=== PATIENT | male | born 1975 | race American Indian/Alaskan Native ===

== ENCOUNTER 2020-03-15 18:14 | Inpatient (IN) | payer OTHER ==
--- NOTE | 2020-03-15 19:03 | Emergency Department Report ---
HPI - General Chief Complaint: Extremity Injury, Lower Time Seen by Provider: 03/15/20 18:50 - HPI HPI: Room 44 The patient is a 45-year-old male present with a chief complaint of right foot pain and swelling. The patient states for the past 2 weeks he has had pain and swelling of the right foot. Patient states she began to notice bruising developing prompting him to go to an urgent care facility. At the urgent care facility the patient was told that he did not have a pulse in his right foot and was sent to the emergency department. The patient states the only injury he can recall was February 16, 2020 a door was closed on his foot pushing it inside the car but was not caught in the door. Patient denies history of fever ED Past Medical Hx - Past Medical History Previous Medical History?: No - Surgical History Past Surgical History?: No - Family History Family history: no significant - Social History Smoking Status: Former Smoker (None x6 months) Substance Use Type: Alcohol (Occasional), Marijuana ED Review of Systems ROS: Stated complaint: NO PULSE IN RT FOOT; MD REFERRED Other details as noted in HPI Constitutional: denies: fever Eyes: denies: eye pain ENT: denies: throat pain Respiratory: no symptoms reported Cardiovascular: denies: chest pain Endocrine: no symptoms reported Gastrointestinal: denies: abdominal pain Genitourinary: denies: dysuria Musculoskeletal: denies: back pain Physical Exam - Physical Exam Vital Signs: Vital Signs 03/15/20 18:44 Temperature 99.1 F Pulse Rate 83 Respiratory 18 Rate Blood Pressure 133/97 [Right] O2 Sat by Pulse 98 Oximetry Physical Exam: GENERAL: The patient is well-developed well-nourished male lying on stretcher not appearing to be in acute distress. [] HEENT: Normocephalic. Atraumatic. Extraocular motions are intact. Patient has moist mucous membranes. NECK: Supple. Trachea midline CHEST/LUNGS: There is no respiratory distress noted. HEART/CARDIOVASCULAR: Regular. There is no tachycardia. 2+ left DP, unable to palpate DP 1 right foot ABDOMEN: There is no abdominal distention. SKIN: There is ecchymosis to the lower aspect of the right lower extremity NEURO: The patient is awake, alert, and oriented. The patient is cooperative. The patient has no focal neurologic deficits. The patient has normal speech and gait. MUSCULOSKELETAL: There is no evidence of acute injury. ED Course Vital Signs 03/15/20 18:44 Temperature 99.1 F Pulse Rate 83 Respiratory 18 Rate Blood Pressure 133/97 [Right] O2 Sat by Pulse 98 Oximetry - Consultations Consultation #1: 03/15/20 18:59 Vascular surgery paged 03/15/20 19:[address] Dodson- agrees with heparin drip no bolus. Will order CTA abdomen pelvis with runoff for further evaluation ED Medical Decision Making - Lab Data Result diagrams: 03/15/20 19:10 03/15/20 19:10 - Differential Diagnosis Arterial occlusion Critical care attestation.: If time is entered above; I have spent that time in minutes in the direct care of this critically ill patient, excluding procedure time. ED Disposition Clinical Impression: Arterial occlusion, lower extremity Disposition: 09 OP ADMIT IP TO THIS HOSP Is pt being admited?: Yes Does the pt Need Aspirin: No Condition: Fair Referrals: PRIMARY CARE,MD [Primary Care Provider] - 3-5 Days Time of Disposition: 22:06 (Hospitalist paged (Dr Interiano))
[2020-03-15 19:38] LABS: Hematocrit 39.7 % (35.5-45.6); Hemoglobin 13.6 gm/dl (11.8-15.2); Mean Corpuscular HGB Conc 34 % (32-34); Mean Corpuscular Volume 87 fl (84-94); Red Blood Count 4.56 M/mm3 (3.65-5.03)
[2020-03-15 19:39] LABS: Basophils % (Auto) 0.4 % (0.0-1.8); Eosinophils % (Auto) 0.3 % (0.0-4.3); Lymphocytes # (Auto) 2.8 K/mm3 (1.2-5.4); Lymphocytes % (Auto) 38.5 % (13.4-35.0); Monocytes # (Auto) 0.5 K/mm3 (0.0-0.8); Monocytes % (Auto) 7.3 % (0.0-7.3); Platelet Count 243 K/mm3 (140-440); Red Cell Distribution Width 13.7 % (13.2-15.2)
[2020-03-15 19:52] LABS: INR 1.08 (0.87-1.13)
[2020-03-15 19:53] LABS: Partial Thromboplastin Time 27.2 Sec. (24.2-36.6)
[2020-03-15 19:58] LABS: BUN/Creatinine Ratio 7; Blood Urea Nitrogen 6 mg/dL (9-20); Calcium 9.3 mg/dL (8.4-10.2); Hemolysis Index 4
[2020-03-15] MEDS ORDERED: ONDANSETRON 4 MG/2 ML INJ IV ONE (21:16)
[2020-03-15] MEDS ORDERED: fentaNYL 100 MCG/2 ML INJ IV ONE (21:16)
[2020-03-15] MEDS ORDERED: MAGNESIUM HYDROXIDE (MOM) ORAL LIQD UDC PO PRN (22:48)
[2020-03-15] MEDS ORDERED: ONDANSETRON 4 MG/2 ML INJ IV PRN (22:48)
[2020-03-15] MEDS ORDERED: ACETAMINOPHEN 325 MG TAB PO PRN (22:48)
--- NOTE | 2020-03-15 22:55 | History and Physical Report ---
History of Present Illness Date of examination: 03/15/20 Date of admission: 03/15/20 22:25 Chief complaint: Right foot pain History of present illness: 45-year-old male with no significant past medical problems presenting to the emergency room today complaining of right foot pain. Pain has been ongoing for about 2 weeks. Patient recalls that the door was closed on his foot while trying to get in the car sometime in January 2020. However his foot was not caught in the door. He has noticed some bruising on the right foot lately and therefore decided to report to an urgent care facility. He was thereafter sent to the emergency room for further evaluation as no pulse could be felt on the right foot. Upon arrival in the emergency room consult was placed to the vascular surgeon Dr. Dodson. Recommendation was to commence patient on heparin drip. Work-up in the emergency room including labs were unremarkable.CTA lower extremity: The only significant abnormality seen is lack of flow in the distal right anterior tibial artery and right dorsalis pedis artery. Patient is being admitted for arterial occlusion. Past History Past Medical History: No medical history Past Surgical History: No surgical history Social history: smoking (Quit tobacco use 6 months ago), alcohol abuse (Drinks alcohol occasionally), other (Uses marijuana occasionally) Family history: no significant family history Medications and Allergies Allergies Allergy/AdvReac Type Severity Reaction Status Date / Time No Known Allergies Allergy Verified 03/15/20 21:32 Home Medications Medication Instructions Recorded Confirmed Last Taken Type No Known Home Medications [No 03/16/20 03/16/20 Unknown History Reported Home Medications] Active Meds: Active Medications Acetaminophen (Acetaminophen 325 Mg Tab) 650 mg PO Q4H PRN PRN Reason: Pain MILD(1-3)/Fever >100.5/MCCOY Heparin Sodium/Sodium Chloride (Heparin/ 0.45% Nacl-25,000 Unit/500 Ml) 25,000 unit in 500 mls @ 30 mls/hr IV TITR FIOR; Protocol Sodium Chloride (Nacl 0.9% 1000 Ml) 1,000 mls @ 75 mls/hr IV DIRECT FIOR Magnesium Hydroxide (Magnesium Hydroxide (Mom) Oral Liqd Udc) 30 ml PO Q4H PRN PRN Reason: Constipation Morphine Sulfate (Morphine 2 Mg/1 Ml Inj) 2 mg IV Q4H PRN PRN Reason: Pain, Moderate (4-6) Ondansetron HCl (Ondansetron 4 Mg/2 Ml Inj) 4 mg IV Q8H PRN PRN Reason: Nausea And Vomiting Sodium Chloride (Sodium Chloride 0.9% 10 Ml Flush Syringe) 10 ml IV BID FIOR Sodium Chloride (Sodium Chloride 0.9% 10 Ml Flush Syringe) 10 ml IV PRN PRN PRN Reason: LINE FLUSH Review of Systems Constitutional: no fever, no chills Ears, nose, mouth and throat: no nasal congestion, no sore throat Cardiovascular: no chest pain, no palpitations Respiratory: no cough, no shortness of breath Gastrointestinal: no abdominal pain, no nausea Genitourinary Male: no dysuria, no hematuria, no flank pain, no nocturia Musculoskeletal: other (Right foot pain), no neck pain, no low back pain Integumentary: no rash, no pruritis Neurological: no headaches, no confusion Exam - Constitutional Vitals: Temp Pulse Resp BP Pulse Ox 99.1 F 83 18 133/97 98 03/15/20 18:44 03/15/20 18:44 03/15/20 18:44 03/15/20 18:44 03/15/20 18:44 General appearance: Present: no acute distress, well-nourished - EENT Eyes: Present: PERRL, EOM intact. Absent: scleral icterus ENT: hearing intact, clear oral mucosa, dentition normal - Neck Neck: Present: supple, normal ROM - Respiratory Respiratory effort: normal Respiratory: bilateral: CTA - Cardiovascular Rhythm: regular Heart Sounds: Present: S1 & S2. Absent: gallop, systolic murmur, diastolic murmur, rub, click - Extremities Extremities: no ischemia, No edema, normal temperature (Right foot feels cooler than the left), normal color, Full ROM Extremity abnormal: pulses diminished (Dorsalis pedis pulse not felt on right foot) Peripheral Pulses: abnormal (Markedly diminished pulse on the right foot) - Abdominal General gastrointestinal: Present: soft, non-tender, non-distended, normal bowel sounds. Absent: mass - Integumentary Integumentary: Present: clear, warm, dry. Absent: rash - Musculoskeletal Musculoskeletal: strength equal bilaterally - Psychiatric Psychiatric: appropriate mood/affect, intact judgment & insight, memory intact, cooperative - Neurologic Neurologic: CNII-XII intact, no focal deficits, moves all extremities Results - Labs CBC & Chem 7: 03/16/20 04:40 03/16/20 04:40 Labs: Abnormal lab results 03/15/20 03/15/20 Range/Units 19:10 19:10 Lymph % (Auto) 38.5 H (13.4-35.0) % BUN 6 L (9-20) mg/dL Assessment and Plan - Patient Problems (1) Arterial occlusion, lower extremity Current Visit: Yes Status: Acute Plan to address problem: Patient has been started on heparin drip. Consult placed to vascular surgery for further evaluation and recommendation. Dr. Dodson has been consulted. (2) Full code status Current Visit: Yes Status: Acute Plan to address problem: Patient is a full code.
[2020-03-15] MEDS: MORPHINE 2 MG/1 ML INJ IV PRN (23:27)
--- NOTE | 2020-03-15 23:36 | Cat Scan Report ---
CTA ABDOMEN, PELVIS, AND BOTH LOWER EXTREMITIES WITH IV CONTRAST INDICATION: Asymetric pedal pulses, lower extremity pain CONTRAST: Total of 150 cc Omnipaque 350 IV COMPARISON: None available. Three-plane MIP reconstructions were produced. All CT scans at this location are performed using CT d ose reduction for ALARA by means of automated exposure control. FINDINGS: Lung bases are clear. No pneumoperitoneum is seen. No free fluid is noted. Gallbladder and bile ducts appear within normal limits. Mild fatty infiltration of the liver is seen without obvious focal lesion. Liver is not significantly enlarged. No masses are noted. No urinary obstructive change s are seen. No evidence of bowel obstruction is noted. No inflammatory changes are seen. Appendix leobardo ears within normal limits. No significant soft tissue abnormalities are seen in the lower extremities . No significant focal bony lesions are seen. Aorta shows no aneurysmal dilatation, evidence of dissection, or stenosis. Only minimal atherosclerot ic changes are seen distally. Major aortic branches are well opacified with no stenoses seen. Good fl ow is seen into and through the iliac arterial system bilaterally without obvious abnormality. Good f low is seen bilaterally through the femoral systems and popliteal arteries into the calves. Trifurcat ion vessels are generally well opacified bilaterally. On the left there is good flow seen in posterio r tibial and anterior tibial arteries below the ankle with good opacification of the foot vessels see n. On the right the posterior tibial artery extends below the ankle. Anterior tibial artery opacifies well to the distal calf but I do not see flow in the right anterior tibial artery below the level of the ankle joint. No flow is seen in the dorsalis pedis artery though there is good flow seen in mult iple other foot arteries on the right. IMPRESSION: The only significant abnormality seen is lack of flow in the distal right anterior tibial artery and right dorsalis pedis artery as described of unknown chronicity Signer Name: Jerardo Morgan MD Signed: 03/15/2020 11:32 PM Workstation Name: [id number]
[2020-03-16] MEDS: HEPARIN/ 0.45% NACL DRIP 25,000 UNIT/500 ML BAG IV SCH ×3 (01:17→20:51)
[2020-03-16] MEDS: SODIUM CHLORIDE 0.9% 1000 ML 1,000 ML IV SCH (01:20)
[2020-03-16] MEDS: MORPHINE 2 MG/1 ML INJ IV PRN ×3 (04:57→19:54)
[2020-03-16 05:36] LABS: Basophils % (Auto) 0.5 % (0.0-1.8); Eosinophils # (Auto) 0.1 K/mm3 (0.0-0.4); Eosinophils % (Auto) 1.4 % (0.0-4.3); Hematocrit 39.4 % (35.5-45.6); Hemoglobin 13.6 gm/dl (11.8-15.2); Lymphocytes # (Auto) 3.2 K/mm3 (1.2-5.4); Lymphocytes % (Auto) 48.1 % (13.4-35.0); Mean Corpuscular HGB Conc 35 % (32-34); Mean Corpuscular Volume 87 fl (84-94); Monocytes # (Auto) 0.5 K/mm3 (0.0-0.8); Monocytes % (Auto) 7.9 % (0.0-7.3); Platelet Count 242 K/mm3 (140-440); Red Cell Distribution Width 13.8 % (13.2-15.2)
[2020-03-16 05:38] LABS: INR 1.13 (0.87-1.13)
[2020-03-16 05:45] LABS: BUN/Creatinine Ratio 7; Blood Urea Nitrogen 6 mg/dL (9-20); Calcium 8.6 mg/dL (8.4-10.2); Hemolysis Index 5
[2020-03-16] MEDS: FAMOTIDINE 20 MG TAB PO SCH ×2 (10:08→23:28)
[2020-03-16] MEDS: DOCUSATE SODIUM 100 MG CAP PO SCH ×2 (10:08→23:28)
--- NOTE | 2020-03-16 14:26 | Consultation ---
History of Present Illness - Reason for Consult Consult date: 03/16/20 Right Leg Pain Requesting physician: DAYA COOPER - History of Present Illness The patient is a 45-year-old male with a history of pain in his right foot associated with occasional numbness of the toes that began approximately 4 weeks ago. He states that on February 15 he was arrested and while being placed in the patrol car his right foot was slammed in the door. Since that time he has had progressively worsening pain of his forefoot that worsens with prolonged standing and ambulation. This is also associated with numbness of all toes. The pain has progressively worsened since the initial incident and he has tried icing the foot to relieve the pain. He began noticing bruising on the pretibial area associated with pain in the lower calf which prompted him to present to an urgent care. Upon presentation to an urgent care he was told he did not have palpable pulses and was told to present to the emergency department here at [facility]. His work-up included a CTA of the abdomen and pelvis with runoff which revealed occlusion of his distal anterior tibial artery however there were no other significant findings. The patient states that since admission he has not experienced much pain however he has not tried to ambulate. He has no additional complaints at this time. He denies any history of hematemesis, hemoptysis, melena, bright red bleeding per rectum, recent surgery, or head trauma. Past History Past Medical History: No medical history Past Surgical History: No surgical history Social history: smoking (Quit tobacco use 6 months ago), alcohol abuse (Drinks alcohol occasionally), other (Uses marijuana occasionally) Family history: no significant family history Medications and Allergies Allergies Allergy/AdvReac Type Severity Reaction Status Date / Time No Known Allergies Allergy Verified 03/15/20 21:32 Home Medications Medication Instructions Recorded Confirmed Last Taken Type No Known Home Medications [No 03/16/20 03/16/20 Unknown History Reported Home Medications] Active Meds: Active Medications Acetaminophen (Acetaminophen 325 Mg Tab) 650 mg PO Q4H PRN PRN Reason: Pain MILD(1-3)/Fever >100.5/[facility]OY Docusate Sodium (Docusate Sodium 100 Mg Cap) 100 mg PO BID [facility] Last Admin: 03/16/20 10:08 Dose: 100 mg Documented by: Famotidine (Famotidine 20 Mg Tab) 20 mg PO BID [facility] Last Admin: 03/16/20 10:08 Dose: 20 mg Documented by: Heparin Sodium/Sodium Chloride (Heparin/ 0.45% Nacl-25,000 Unit/500 Ml) 25,000 unit in 500 mls @ 30 mls/hr IV TITR FIOR; Protocol Last Admin: 03/16/20 01:17 Dose: 1,500 units/hr, 30 mls/hr Documented by: Sodium Chloride (Nacl 0.9% 1000 Ml) 1,000 mls @ 75 mls/hr IV DIRECT FIOR Last Admin: 03/16/20 01:20 Dose: 75 mls/hr Documented by: Magnesium Hydroxide (Magnesium Hydroxide (Mom) Oral Liqd Udc) 30 ml PO Q4H PRN PRN Reason: Constipation Morphine Sulfate (Morphine 2 Mg/1 Ml Inj) 2 mg IV Q4H PRN PRN Reason: Pain, Moderate (4-6) Last Admin: 03/16/20 10:08 Dose: 2 mg Documented by: Ondansetron HCl (Ondansetron 4 Mg/2 Ml Inj) 4 mg IV Q8H PRN PRN Reason: Nausea And Vomiting Last Admin: 03/15/20 23:28 Dose: 4 mg Documented by: Sodium Chloride (Sodium Chloride 0.9% 10 Ml Flush Syringe) 10 ml IV BID [facility] Last Admin: 03/16/20 10:10 Dose: 10 ml Documented by: Sodium Chloride (Sodium Chloride 0.9% 10 Ml Flush Syringe) 10 ml IV PRN PRN PRN Reason: LINE FLUSH Review of Systems All systems: negative Exam - Constitutional Vitals: Temp Pulse Resp BP Pulse Ox 98.8 F 62 16 129/76 99 03/16/20 11:36 03/16/20 11:36 03/16/20 12:00 03/16/20 11:36 03/16/20 11:36 General appearance: Present: no acute distress - Neck Neck: Present: supple - Respiratory Respiratory effort: normal - Cardiovascular Rhythm: regular - Extremities Extremities: pulses intact (Left dorsalis pedis and posterior tibial pulses are 2+. The right posterior tibial pulse is 1+. The right dorsalis pedis pulse is nonpalpable.), normal temperature Extremity abnormal: other (Several areas of ecchymosis on the right pretibial area) - Abdominal General gastrointestinal: Present: soft, non-tender, non-distended Male genitourinary: Present: deferred - Rectal Rectal Exam: deferred - Musculoskeletal Musculoskeletal: other (Motor is intact in both feet) - Neurologic Neurologic: other (The patient has sensation in his right foot however he states he does not feel completely normal.) Results - Labs CBC & Chem 7: 03/16/20 04:40 03/16/20 04:40 Labs: Abnormal lab results 03/15/20 03/15/20 03/16/20 Range/Units 19:10 19:10 04:40 MCHC 35 H (32-34) % Lymph % (Auto) 38.5 H 48.1 H (13.4-35.0) % [place] % (Auto) 7.9 H (0.0-7.3) % Carbon Dioxide (22-30) mmol/L BUN 6 L (9-20) mg/dL 03/16/20 Range/Units 04:40 MCHC (32-34) % Lymph % (Auto) (13.4-35.0) % [place] % (Auto) (0.0-7.3) % Carbon Dioxide 31 H (22-30) mmol/L BUN 6 L (9-20) mg/dL - Imaging and Cardiology CT scan - abdomen: image reviewed Assessment and Plan The patient is a 45-year-old male with a history of trauma to his right lower extremity who presented to the emergency department with complaints of pain in his right foot. He also complains of occasional numbness in all toes. He has a nonpalpable dorsalis pedis pulse and evidence of occlusion of the distal anterior tibial artery on CTA. He is in need of a diagnostic angiogram with pos sible intervention. Given his height it will require an antegrade approach. I discussed this with the patient who is expressed understanding and agrees to proceed.
[2020-03-16] MEDS ORDERED: HEPARIN/NS 5000 UNIT/500ML 1,500 ML IR ONE (14:42)
[2020-03-16] MEDS ORDERED: SODIUM CHLORIDE 0.9% 500 ML 500 ML ONE ×2 (14:42→16:58)
[2020-03-16] MEDS ORDERED: LIDOCAINE (2%) 20 MG/1 ML VIAL 20 ML MDV INFILTRATI ONE (14:42)
[2020-03-16] MEDS ORDERED: MIDAZOLAM 2 MG/2 ML INJ ONE ×2 (14:45→15:24)
[2020-03-16] MEDS: MIDAZOLAM 2 MG/2 ML INJ ONE ×3 (15:05→16:29)
[2020-03-16] MEDS: fentaNYL 100 MCG/2 ML INJ ONE ×5 (15:05→16:29)
[2020-03-16] MEDS ORDERED: WATER FOR INJ Sterile (PF) 20 ML ONE ×2 (15:34→17:14)
[2020-03-16] MEDS: HEPARIN 10,000 UNITS/10 ML VIAL ONE ×3 (15:39→17:05)
[2020-03-16] MEDS: NITROGLYCERIN SYRINGE 3 ML ONE ×2 (15:50→16:08)
[2020-03-16] MEDS: ALTEPLASE 2 MG INJ ONE ×2 (16:01→16:42)
--- NOTE | 2020-03-16 16:25 | Progress Note ---
<CAMDEN DUMONT - Last Filed: 03/16/20 16:35> Assessment and Plan Assessment and plan: Lower extremity arterial occlusion -03/15 CTA abdomen/pelvis/bilateral lower extremities with contrast revealed mild fatty infiltration of the liver, with anterior tibial artery opacities into the distal calf on the right lower extremity with no flow in the right anterior tibial artery below the level of the ankle and no flow in the dorsalis pedis artery -Heparin drip -Vascular consult, appreciate recommendations -03/16 right lower extremity diagnostic angiogram with possible intervention -As needed analgesia Tobacco abuse -Per patient report he quit 6 months ago -Tobacco abuse cessation education DVT prophylaxis -Systemic anticoagulation with heparin drip -GI prophylaxis -SCDs to bilateral LE while in bed History Interval history: This is a 45-year-old male who is a former tobacco abuser (quit 6 months ago) with occasional marijuana and alcohol use who presents to the emergency department on 03/15 with complaints of right foot pain associated with occasional numbness of the toes which began approximately 4 weeks ago and bruising prior to arrival. Work-up in the emergency department included a CT of the abdomen and pelvis with runoff which revealed occlusion of his distal anterior tibial artery. And vascular surgery was consulted. At the time of my examination patient is on heparin drip and has no complaints or acute events overnight. Hospitalist Physical - Constitutional Vitals: Temp Pulse Resp BP Pulse Ox 98.8 F 62 16 129/76 99 03/16/20 11:36 03/16/20 11:36 03/16/20 12:00 03/16/20 11:36 03/16/20 11:36 General appearance: Present: no acute distress - EENT Eyes: Present: PERRL, EOM intact ENT: hearing intact, clear oral mucosa, dentition normal - Neck Neck: Present: normal ROM - Respiratory Respiratory effort: normal Respiratory: bilateral: CTA - Cardiovascular Rhythm: regular Heart Sounds: Present: S1 & S2. Absent: systolic murmur, diastolic murmur - Extremities Extremities: no ischemia, pulses intact, pulses symmetrical, No edema, normal temperature, normal color Extremity abnormal: pulses diminished Peripheral Pulses: abnormal - Peripheral pulses dorsalis pedis Pulse Strength: Absent (right) - Abdominal General gastrointestinal: soft, non-tender, non-distended, normal bowel sounds - Integumentary Integumentary: Present: clear, warm, dry - Psychiatric Psychiatric: cooperative - Neurologic Neurologic: CNII-XII intact, no focal deficits, moves all extremities - Allied Health Allied health notes reviewed: nursing Results - Labs CBC & Chem 7: 03/16/20 04:40 03/16/20 04:40 Labs: Laboratory Last Values WBC 6.7 K/mm3 (4.5-11.0) 03/16/20 04:40 RBC 4.50 M/mm3 (3.65-5.03) 03/16/20 04:40 Hgb 13.6 gm/dl (11.8-15.2) 03/16/20 04:40 Hct 39.4 % (35.5-45.6) 03/16/20 04:40 MCV 87 fl (84-94) 03/16/20 04:40 MCH 30 pg (28-32) 03/16/20 04:40 MCHC 35 % (32-34) H 03/16/20 04:40 RDW 13.8 % (13.2-15.2) 03/16/20 04:40 Plt Count 242 K/mm3 (140-440) 03/16/20 04:40 Lymph % (Auto) 48.1 % (13.4-35.0) H 03/16/20 04:40 Upton % (Auto) 7.9 % (0.0-7.3) H 03/16/20 04:40 Eos % (Auto) 1.4 % (0.0-4.3) 03/16/20 04:40 Baso % (Auto) 0.5 % (0.0-1.8) 03/16/20 04:40 Lymph # (Auto) 3.2 K/mm3 (1.2-5.4) 03/16/20 04:40 Upton # (Auto) 0.5 K/mm3 (0.0-0.8) 03/16/20 04:40 Eos # (Auto) 0.1 K/mm3 (0.0-0.4) 03/16/20 04:40 Baso # (Auto) 0.0 K/mm3 (0.0-0.1) 03/16/20 04:40 Seg Neutrophils % 42.1 % (40.0-70.0) 03/16/20 04:40 Seg Neutrophils # 2.8 K/mm3 (1.8-7.7) 03/16/20 04:40 PT 14.3 Sec. (12.2-14.9) 03/16/20 04:40 INR 1.13 (0.87-1.13) 03/16/20 04:40 APTT 27.2 Sec. (24.2-36.6) 03/15/20 19:10 Heparin Anti-Xa Level 0.60 U.I./ml (0.3-0.7) 03/16/20 06:57 Sodium 141 mmol/L (137-145) 03/16/20 04:40 Potassium 3.9 mmol/L (3.6-5.0) 03/16/20 04:40 Chloride 103.6 mmol/L (98-107) 03/16/20 04:40 Carbon Dioxide 31 mmol/L (22-30) H 03/16/20 04:40 Anion Gap 10 mmol/L 03/16/20 04:40 BUN 6 mg/dL (9-20) L 03/16/20 04:40 Creatinine 0.9 mg/dL (0.8-1.3) 03/16/20 04:40 Estimated GFR > 60 ml/min 03/16/20 04:40 BUN/Creatinine Ratio 7 % 03/16/20 04:40 Glucose 98 mg/dL (75-100) 03/16/20 04:40 Calcium 8.6 mg/dL (8.4-10.2) 03/16/20 04:40 Blood Type AB POSITIVE 03/15/20 19:10 Antibody Screen Negative 03/15/20 19:10 Winter/IV: Voiding Method Toilet IV Catheter Type [Left INT / Saline Lock Antecubital] IV Catheter Type [Right Peripheral IV Antecubital] Active Medications - Current Medications Current Medications: Generic Name Dose Route Start Last Admin Trade Name Freq PRN Reason Stop Dose Admin Acetaminophen 650 mg 03/15/20 22:48 Acetaminophen 325 Mg Tab PO Q4H PRN Pain MILD(1-3)/Fever >100.5/MCCOY Docusate Sodium 100 mg 03/16/20 10:00 03/16/20 10:08 Docusate Sodium 100 Mg Cap PO 100 mg BID FIOR Administration Famotidine 20 mg 03/16/20 10:00 03/16/20 10:08 Famotidine 20 Mg Tab PO 20 mg BID FIOR Administration Heparin Sodium/Sodium Chloride 25,000 unit in 500 mls @ 30 mls/hr 03/15/20 21:30 03/16/20 01:17 Heparin/ 0.45% Nacl-25,000 Unit/500 Ml IV 1,500 units/hr TITR FIOR 30 mls/hr Administration Protocol 1,500 UNITS/HR Sodium Chloride 1,000 mls @ 75 mls/hr 03/15/20 23:00 03/16/20 01:20 Nacl 0.9% 1000 Ml IV 75 mls/hr DIRECT FIOR Administration Magnesium Hydroxide 30 ml 03/15/20 22:48 Magnesium Hydroxide (Mom) Oral Liqd Udc PO Q4H PRN Constipation Morphine Sulfate 2 mg 03/15/20 22:48 03/16/20 10:08 Morphine 2 Mg/1 Ml Inj IV 2 mg Q4H PRN Administration Pain, Moderate (4-6) Ondansetron HCl 4 mg 03/15/20 22:48 03/15/20 23:28 Ondansetron 4 Mg/2 Ml Inj IV 4 mg Q8H PRN Administration Nausea And Vomiting Sodium Chloride 10 ml 03/16/20 10:00 03/16/20 10:10 Sodium Chloride 0.9% 10 Ml Flush Syringe IV 10 ml BID FIOR Administration Sodium Chloride 10 ml 03/15/20 22:48 Sodium Chloride 0.9% 10 Ml Flush Syringe IV PRN PRN LINE FLUSH <SASHA MURO - Last Filed: 03/17/20 09:47> Assessment and Plan Assessment and plan: I saw and evaluated the patient. I agree with the findings and the plan of care as documented in the Nurse Practitioner's~note, with the following corrections and additions. Hospitalist Physical - Constitutional Vitals: Temp Pulse Resp BP Pulse Ox 98.0 F 66 18 125/84 99 03/17/20 04:18 03/17/20 05:38 03/17/20 04:18 03/17/20 05:38 03/17/20 04:18 Results - Labs CBC & Chem 7: 03/17/20 04:48 03/17/20 04:48 Labs: Laboratory Last Values WBC 6.7 K/mm3 (4.5-11.0) 03/16/20 04:40 RBC 4.50 M/mm3 (3.65-5.03) 03/16/20 04:40 Hgb 12.4 gm/dl (11.8-15.2) 03/17/20 04:48 Hct 35.4 % (35.5-45.6) L 03/17/20 04:48 MCV 87 fl (84-94) 03/16/20 04:40 MCH 30 pg (28-32) 03/16/20 04:40 MCHC 35 % (32-34) H 03/16/20 04:40 RDW 13.8 % (13.2-15.2) 03/16/20 04:40 Plt Count 232 K/mm3 (140-440) 03/17/20 04:48 Lymph % (Auto) 48.1 % (13.4-35.0) H 03/16/20 04:40 Upton % (Auto) 7.9 % (0.0-7.3) H 03/16/20 04:40 Eos % (Auto) 1.4 % (0.0-4.3) 03/16/20 04:40 Baso % (Auto) 0.5 % (0.0-1.8) 03/16/20 04:40 Lymph # (Auto) 3.2 K/mm3 (1.2-5.4) 03/16/20 04:40 Upton # (Auto) 0.5 K/mm3 (0.0-0.8) 03/16/20 04:40 Eos # (Auto) 0.1 K/mm3 (0.0-0.4) 03/16/20 04:40 Baso # (Auto) 0.0 K/mm3 (0.0-0.1) 03/16/20 04:40 Seg Neutrophils % 42.1 % (40.0-70.0) 03/16/20 04:40 Seg Neutrophils # 2.8 K/mm3 (1.8-7.7) 03/16/20 04:40 PT 14.3 Sec. (12.2-14.9) 03/16/20 04:40 INR 1.13 (0.87-1.13) 03/16/20 04:40 APTT 27.2 Sec. (24.2-36.6) 03/15/20 19:10 Heparin Anti-Xa Level 1.15 U.I./ml (0.3-0.7) H 03/17/20 06:57 Sodium 137 mmol/L (137-145) 03/17/20 04:48 Potassium 3.8 mmol/L (3.6-5.0) 03/17/20 04:48 Chloride 104.0 mmol/L (98-107) 03/17/20 04:48 Carbon Dioxide 23 mmol/L (22-30) D 03/17/20 04:48 Anion Gap 14 mmol/L 03/17/20 04:48 BUN 8 mg/dL (9-20) L 03/17/20 04:48 Creatinine 0.9 mg/dL (0.8-1.3) 03/17/20 04:48 Estimated GFR > 60 ml/min 03/17/20 04:48 BUN/Creatinine Ratio 9 % 03/17/20 04:48 Glucose 97 mg/dL (75-100) 03/17/20 04:48 Calcium 8.3 mg/dL (8.4-10.2) L 03/17/20 04:48 Blood Type AB POSITIVE 03/15/20 19:10 Antibody Screen Negative 03/15/20 19:10 Winter/IV: Voiding Method Urinal IV Catheter Type [Left INT / Saline Lock Antecubital] IV Catheter Type [Right Peripheral IV Antecubital] Active Medications - Current Medications Current Medications: Generic Name Dose Route Start Last Admin Trade Name Freq PRN Reason Stop Dose Admin Acetaminophen 650 mg 03/15/20 22:48 Acetaminophen 325 Mg Tab PO Q4H PRN Pain MILD(1-3)/Fever >100.5/MCCOY Apixaban 10 mg 03/17/20 10:00 Apixaban 5 Mg Tab PO 03/24/20 09:59 Q12HR [facility] Protocol Apixaban 5 mg 03/24/20 10:00 Apixaban 5 Mg Tab PO 04/23/20 09:59 Q12HR [facility] Protocol Aspirin 81 mg 03/17/20 10:00 Aspirin Ec 81 Mg Tab PO QDAY FIOR Cilostazol 100 mg 03/16/20 22:00 03/16/20 23:28 Cilostazol 100 Mg Tab PO 100 mg BID [facility] Administration Docusate Sodium 100 mg 03/16/20 10:00 03/16/20 23:28 Docusate Sodium 100 Mg Cap PO 100 mg BID FIOR Administration Famotidine 20 mg 03/16/20 10:00 03/16/20 23:28 Famotidine 20 Mg Tab PO 20 mg BID FIOR Administration Hydromorphone HCl 1 mg 03/17/20 04:09 03/17/20 08:35 Hydromorphone 1 Mg/1 Ml Inj IV 1 mg Q3H PRN Administration Pain , Severe (7-10) Sodium Chloride 1,000 mls @ 75 mls/hr 03/15/20 23:00 03/17/20 08:36 Nacl 0.9% 1000 Ml IV 75 mls/hr DIRECT FIOR Administration Magnesium Hydroxide 30 ml 03/15/20 22:48 Magnesium Hydroxide (Mom) Oral Liqd Udc PO Q4H PRN Constipation Morphine Sulfate 2 mg 03/16/20 21:45 03/16/20 22:26 Morphine 2 Mg/1 Ml Inj IV 2 mg Q2H PRN Administration Pain, Moderate (4-6) Ondansetron HCl 4 mg 03/15/20 22:48 03/15/20 23:28 Ondansetron 4 Mg/2 Ml Inj IV 4 mg Q8H PRN Administration Nausea And Vomiting Oxycodone/Acetaminophen 2 tab 03/16/20 21:44 03/17/20 02:43 Oxycodone /Acetaminophen 5-325mg Tab PO 2 tab Q6H PRN Administration Pain, Moderate (4-6) Pantoprazole Sodium 40 mg 03/16/20 18:00 03/16/20 18:49 Pantoprazole 40 Mg Tab PO 40 mg QDAC FIOR Administration Sodium Chloride 10 ml 03/16/20 10:00 03/16/20 23:29 Sodium Chloride 0.9% 10 Ml Flush Syringe IV 10 ml BID FIOR Administration Sodium Chloride 10 ml 03/15/20 22:48 Sodium Chloride 0.9% 10 Ml Flush Syringe IV PRN PRN LINE FLUSH
[2020-03-16] MEDS ORDERED: NITROGLYCERIN SYRINGE 3 ML ONE ×2 (16:30→17:25)
[2020-03-16] MEDS ORDERED: HYDROmorphone 1 MG/1 ML INJ ONE (16:32)
[2020-03-16] MEDS ORDERED: diphenhydrAMINE 50 MG/ML VIAL ONE ×2 (16:32→16:47)
[2020-03-16] MEDS ORDERED: HEPARIN/NS 5000 UNIT/500ML 1,000 ML IR ONE (16:47)
[2020-03-16] MEDS ORDERED: oxyCODONE /ACETAMINOPHEN 5-325MG TAB PO PRN (17:00)
[2020-03-16] MEDS ORDERED: ALTEPLASE 2 MG INJ ONE (17:14)
[2020-03-16] MEDS ORDERED: NITROGLYCERIN 2% OINT 1 GM TP ONE (17:35)
--- NOTE | 2020-03-16 18:09 | Operative Report ---
Operative Report Operative Report: Date of Procedure: 03/16/2019 Pre-operative Diagnosis: Right Foot Pain with Anterior Tibial Artery Occlusion Post-operative Diagnosis: Right Foot Pain with Subacute Thrombosis of All Tibial Vessels Procedure(s): 1. Ultrasound-Guided Access Right Common Femoral Artery in Antegrade Fashion 2. Diagnostic Right Lower Extremity Angiogram (No Previous Films for Comparison) 3. Percutaneous Pharmacomechanical Thrombectomy of Right Posterior Tibial Artery with 10 mg of TPA and Indigo Penumbra CAT 6 Aspiration Catheter 4. Angioplasty of Right Posterior Tibial Artery with 2.5 x 220 Brian Balloon 5. Percutaneous Mechanical Thrombectomy of Right Anterior Tibial Artery With a Total of 20 Mg of TPA And the Indigo Penumbra CAT 6 Aspiration Catheter 6. Angioplasty of Right Anterior Tibial Artery with a 2.5-3.0 x 220 Nanocross Balloon 7. Angioplasty of Right Dorsalis Pedis Artery and Deep Plantar Artery with a 2.0-2.5 x 220 Nanocross Balloon 8. Closure of Right Femoral Arteriotomy with Pro-Eastern Closure Device 9. Radiologic Supervision with Interpretation 10. Monitored Moderate Sedation (Total Anesthesia Time: 173 Minutes) Surgeon: Brian Perry M.D. Reflexologist: None Anesthesia: Monitored Moderate Sedation Total Anesthesia Time: 173 Minutes EBL: Minimal Counts: Correct Complications: None Condition: Stable Specimen: None Indication: The patient is a 45-year-old male who presented to the hospital with complaints of right foot pain for approximately 4 weeks. He has retained motor and sensation however he has severe pain with standing and walking and develops numbness in his foot with prolonged standing and walking. He had a CTA of his abdomen pelvis with runoff that revealed possible tibial artery occlusion. He is in need of a diagnostic angiogram with possible intervention. He was given the risk, benefits, and alternative procedures and consented to the procedure. Angiographic Findings: The diagnostic angiogram revealed that the right common femoral artery, profunda artery, SFA, and popliteal arteries were all patent without significant flow- limiting stenosis or evidence of thrombus. The anterior tibial artery occluded in the upper third of the calf without evidence of reconstitution. The peroneal artery occluded at the upper third of the calf without evidence of reconstitution. The posterior tibial artery occluded at the level of the ankle without evidence of reconstitution in the foot. There was minimal flow noted within the foot on the diagnostic angiogram. After intervention the anterior tibial artery and dorsalis pedis artery were patent without residual flow- limiting stenosis or evidence of residual thrombus. There were minimal outflow vessels into the foot and toes. The posterior tibial artery had residual thrombus at the ankle however there was some inline flow into the foot however there again were minimal collateral branches providing flow to the toes. Description of Procedure: The patient was brought to the [facility] and laid in supine position. After timeout was performed the patient's right groin was prepped and draped in normal sterile fashion. Ultrasound was used to identify the right common femoral artery and confirm patency. Once patency was confirmed the overlying skin and soft tissue was anesthetized with lidocaine. An 11 blade was used to make a small stab incision and then a 21-gauge micropuncture needle was used with ultrasound guidance to enter the right common femoral artery in antegrade fashi on. A 0.018 micropuncture wire was advanced into the artery and after removing the needle a micropuncture sheath was advanced by Seldinger technique. The wire and sheath were noted to be in the profundal artery so advanced a Bentson wire into the artery and then advanced a vertebral catheter over the Bentson wire. I then used a 0.035 floppy Glidewire with the vertebral catheter to cannulate the SFA and advanced the catheter wire into the distal SFA. I exchanged the Glidewire for the Bentson wire and then advanced a 5 Prydeinig sheath into the artery by Seldinger technique. I then performed a diagnostic right lower extremity angiogram with the previously described findings. I then advanced a Bentson wire into the distal popliteal artery and exchanged the 5 Prydeinig sheath for a 6 Prydeinig 65 cm destination sheath by Seldinger technique. At this point I systemically heparinized the patient with 4000 units of heparin IV which was redosed with 1000 units of heparin every 45 minutes into the completion of the case. I then used a Navicross catheter and a 0.018 V18 wire and was able to cannulate the posterior tibial artery. I advanced the catheter wire into the distal posterior tibial artery and was able to advance the wire and catheter through the occluded distal posterior tibial artery and into the foot. This was confirmed by angiogram. I was eventually able to advance the catheter and wire through the pedal arch and into the anterior tibial artery which was confirmed by angiogram. I performed angioplasty of the arch and distal posterior tibial artery with the 2.5 x 220 Brian Balloon and then injected 2 mg of TPA into the distal posterior tibial artery. I allowed this to dwell for approximately 10 minutes and then attempted percutaneous mechanical thrombectomy of the distal posterior tibial artery and pedal arch using a Indigo Penumbra CAT Rx however I was unable to aspirate any thrombus using this catheter so I upsized to a Indigo Penumbra Cat 6 and began to aspirate thrombus from the distal posterior tibial artery. There was some residual thrombus and despite multiple attempts there was residual thrombus in the distal artery however there was inline flow into the foot with minimal collateral vessels providing flow to the toes. I injected 600 mcg of nitroglycerin into the foot they decided to treat the anterior tibial artery. I advanced the Navicross catheter and V 18 wire into the anterior tibial artery and was able to advance the catheter and wire into the dorsalis pedis artery in and eventually into the distal foot. I injected 10 mg of TPA an d allow this to dwell for approximately 10 minutes. I then used the Penumbra Cat 6 to perform percutaneous mechanical thrombectomy of the anterior tibial artery and dorsalis pedis artery. There was a significant amount of residual thrombus and what appeared to be stenosis of the dorsalis pedis arteries are performed angioplasty using a 2.5-3.0 x220 NanoCross Balloon this appeared to squeegee thrombus down into the dorsalis pedis artery which I was able to aspirate using the CAT 6 catheter. I injected a total of 1200 mcg of nitroglycerin into the foot and an additional 10 mg of TPA. I then advanced a 0.014 Choice PT wire into the pedal arch and into the posterior tibial artery I used a 2.0-2.5 x 220 Nanocross Balloon to perform angioplasty of the dorsalis pedis artery and deep plantar artery. The anterior tibial artery and dorsalis pedis artery appeared to have no residual thrombus or flow-limiting stenosis. There was sluggish flow because of the minimal outflow into the foot. At this point I made the decision to place nitroglycerin on the plantar surface of the foot in hopes of dilating the outflow vessels. I advanced a Bentson wire through the sheath and used a Pro-glide closure device to close the right femoral arteriotomy. A sterile dressing was then applied to the groin and the patient was transported to his room in stable condition.
[2020-03-16] MEDS: NITROGLYCERIN 2% OINT 1 GM TP SCH (18:32)
[2020-03-16] MEDS: PANTOPRAZOLE 40 MG TAB PO SCH (18:49)
[2020-03-16] MEDS ORDERED: MORPHINE 2 MG/1 ML INJ IV PRN (21:45)
[2020-03-16] MEDS: CILOSTAZOL 100 MG TAB PO SCH (23:28)
[2020-03-17] MEDS: oxyCODONE /ACETAMINOPHEN 5-325MG TAB PO PRN ×2 (02:43→10:57)
[2020-03-17] MEDS: HYDROmorphone 1 MG/1 ML INJ IV PRN ×2 (04:47→08:35)
[2020-03-17 05:33] LABS: BUN/Creatinine Ratio 9; Blood Urea Nitrogen 8 mg/dL (9-20); Calcium 8.3 mg/dL (8.4-10.2); Hemolysis Index 4
[2020-03-17] MEDS: NITROGLYCERIN 2% OINT 1 GM TP SCH (05:38)
[2020-03-17 05:48] LABS: Hematocrit 35.4 % (35.5-45.6); Hemoglobin 12.4 gm/dl (11.8-15.2)
[2020-03-17] MEDS: PANTOPRAZOLE 40 MG TAB PO SCH (07:30)
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
[2020-03-17] MEDS: SODIUM CHLORIDE 0.9% 1000 ML 1,000 ML IV SCH (08:36)
[2020-03-17] MEDS ORDERED: ASPIRIN EC 81 MG TAB PO SCH (10:00)
[2020-03-17] MEDS ORDERED: APIXABAN 5 MG TAB PO SCH (10:00)
[2020-03-17] MEDS: CILOSTAZOL 100 MG TAB PO SCH (10:02)
[2020-03-17] MEDS: DOCUSATE SODIUM 100 MG CAP PO SCH (10:02)
[2020-03-17] MEDS: FAMOTIDINE 20 MG TAB PO SCH (10:02)
--- NOTE | 2020-03-17 10:19 | Discharge Summary ---
<CAMDEN DUMONT - Last Filed: 03/17/20 16:44> Providers - Providers Date of Admission: 03/15/20 22:25 Date of discharge: 03/17/20 Attending physician: SASHA MURO MD 03/15/20 19:18 Consult to Physician [CONS] Stat Comment: Dr. Palma spoke with Dr. Dodson @ [phone] Consulting Provider: ANTWON DODSON Physician Instructions: Reason For Exam: Pulseless right foot 03/17/20 08:17 Physical Therapy Evaluation and Treat [CONS] Routine Comment: Reason For Exam: s/p thrombectomy, BLE weakness Primary care physician: DOCK GRADER Hospitalization Condition: Stable Hospital course: This is a 45-year-old male who is a former tobacco abuser (quit 6 months ago) with occasional marijuana and alcohol use who presents to the emergency department on 03/15 with complaints of right foot pain associated with occasional numbness of the toes which began approximately 4 weeks ago and bruising prior to arrival. Work-up in the emergency department included a CT of the abdomen and pelvis with runoff which revealed occlusion of his distal anterior tibial artery. And vascular surgery was consulted. Patient had a thrombectomy to his right tibial artery and angioplasty to his right tibial artery and right dorsalis pedis artery. Patient will be discharged with Eliquis for 6 months, aspirin, Protonix, Pletal and narcotic analgesics. Patient will need to follow- up with his primary care physician and vascular surgery within 1 to 2 weeks of discharge. Smoking cessation is strongly encouraged. You will be discharged with home health physical therapy and crutches. Assessment and plan: Lower extremity arterial occlusion -03/15 CTA abdomen/pelvis/bilateral lower extremities with contrast revealed mild fatty infiltration of the liver, with anterior tibial artery opacities into the distal calf on the right lower extremity with no flow in the right anterior tibial artery below the level of the ankle and no flow in the dorsalis pedis artery -03/16 right lower extremity diagnostic angiogram with possible intervention -03/16 s/p thrombectomy to right tibial artery and angioplasty to right tibial artery and right dorsalis pedis artery -You will be discharged with Eliquis for 6 months, aspirin, Pletal -You will be discharged with as needed narcotic analgesia Tobacco abuse -Per patient report he quit 6 months ago -Tobacco abuse cessation education GI prophylaxis -You will be discharged with Protonix daily Disposition: - TO HOME OR SELFCARE Time spent for discharge: 35 Core Measure Documentation - Palliative Care Palliative Care/ Comfort Measures: Not Applicable - Core Measures Any of the following diagnoses?: DVT/PE - VTE Discharge Requirements Deep Vein Thrombosis/Pulmonary Embolism Present on Admission: Yes Has pt received <5 days of overlap therapy or INR<2.0: No Anticoagulant overlap therapy prescribed at discharge: Yes Exam - Constitutional Vitals: Temp Pulse Resp BP Pulse Ox 97.9 F 77 18 167/79 98 03/17/20 07:59 03/17/20 10:00 03/17/20 07:59 03/17/20 10:00 03/17/20 10:00 General appearance: Present: no acute distress - EENT Eyes: Present: PERRL, EOM intact ENT: hearing intact, clear oral mucosa - Neck Neck: Present: supple, normal ROM - Respiratory Respiratory effort: normal Respiratory: bilateral: CTA - Cardiovascular Rhythm: regular Heart Sounds: Present: S1 & S2. Absent: systolic murmur, diastolic murmur - Extremities Extremities: no ischemia, pulses intact, pulses symmetrical, No edema, normal temperature, normal color Extremity abnormal: edema, tenderness (RLE) - Peripheral Assessment Right Lower Extremity Edema Type: Non-pitting Capillary Refill: < 3 seconds Skin Temperature: Warm - Peripheral pulses posterial tibial Pulse Strength: 2+ dorsalis pedis Pulse Strength: 3+ - Abdominal General gastrointestinal: Present: soft, non-tender, non-distended - Integumentary Integumentary: Present: clear, warm, dry - Musculoskeletal Musculoskeletal: strength equal bilaterally - Psychiatric Psychiatric: appropriate mood/affect, cooperative - Neurologic Neurologic: CNII-XII intact, no focal deficits, moves all extremities - Allied Health Allied health notes reviewed: nursing Plan Activity: advance as tolerated Diet: regular Wound: per your surgeon's advice Additional Instructions: Present to your nearest emergency department or contact your primary care provider if you experience worsending symptoms. You will need to followup with you primary care provider and vascular surgeon within 1-2 weeks of discharge. You will be discharged with the starter pack of Eliquis and need to follow up with your vascular surgeon or primary care provider for additional prescriptions as it is recommended you take this for 6 months. You will not be able to lift over 10 pounds for 5 days or as indicated by a vascular surgeon. Follow up with: YOSEPH NEWSOME MD [Primary Care Provider] - 3-5 Days ANTWON DODSON MD [Staff Physician] - 7 Days Prescriptions: Apixaban [Eliquis] 5 mg PO Q12HR 6 Days #13 tablet Apixaban [Eliquis] 10 mg PO Q12HR #60 tablet Aspirin EC [Halfprin EC] 81 mg PO QDAY #30 tablet oxyCODONE /ACETAMINOPHEN [Percocet 5/325] 1 tab PO Q4HR PRN #30 tab PRN Reason: Pain , Severe (7-10) cilostazoL [Pletal] 100 mg PO BID #60 tablet Pantoprazole [Protonix TAB] 40 mg PO QDAC #30 tablet <SASHA MURO - Last Filed: 03/17/20 19:26> Providers - Providers Date of Admission: 03/15/20 22:25 Attending physician: SASHA MURO MD 03/15/20 19:18 Consult to Physician [CONS] Stat Comment: Dr. Palma spoke with Dr. Dodson @ [phone] Consulting Provider: ANTWON DODSON Physician Instructions: Reason For Exam: Pulseless right foot 03/17/20 08:17 Physical Therapy Evaluation and Treat [CONS] Routine Comment: Reason For Exam: s/p thrombectomy, BLE weakness Primary care physician: DOCK GRADER Hospitalization Hospital course: I saw and evaluated the patient. I agree with the findings and the plan of care as documented in the Nurse Practitioner's~note, with the following corrections and additions. Exam - Constitutional Vitals: Temp Pulse Resp BP Pulse Ox 98.7 F 85 18 157/89 100 03/17/20 12:09 03/17/20 12:09 03/17/20 12:09 03/17/20 12:09 03/17/20 12:09
[2020-03-17 12:49] VITALS: BP 157/89
[2020-03-24] MEDS ORDERED: APIXABAN 5 MG TAB PO SCH (10:00)
== END 2020-03-17 13:24 | disposition home or self-care (01) | DRG 272 ==
LOC: ED 18:14 → 4A 22:25
PROVIDERS: ADMIT Internal Medicine Geriatric Medicine; ATTEND Internal Medicine
PROC: 04CR3ZZ Extirpation of Matter from Right Posterior Tibial Artery, Percutaneous Approach (ICD-10-PCS; principal; 2020-03-16)
PROC: 04CP3ZZ Extirpation of Matter from Right Anterior Tibial Artery, Percutaneous Approach (ICD-10-PCS; 2020-03-16)
PROC: 047P3ZZ Dilation of Right Anterior Tibial Artery, Percutaneous Approach (ICD-10-PCS; 2020-03-16)
PROC: 047R3ZZ Dilation of Right Posterior Tibial Artery, Percutaneous Approach (ICD-10-PCS; 2020-03-16)
PROC: 047V3ZZ Dilation of Right Foot Artery, Percutaneous Approach (ICD-10-PCS; 2020-03-16)
PROC: B41F1ZZ Fluoroscopy of Right Lower Extremity Arteries using Low Osmolar Contrast (ICD-10-PCS; 2020-03-16)
DX: I74.3 Embolism and thrombosis of arteries of the lower extremities (principal); Z87.891 Personal history of nicotine dependence
CPT/HCPCS: 36415; 37184; 37185; 37228; 37232; 75635; 75710; 76937; 80048; 85014; 85018; 85025; 85049; 85520; 85610; 85730; 86850; 86900; 86901; 93005; 96365; 96367; G0378; C1725; C1757; C1760; C1769; C1887; J1170; J1200; J1644; J2250; J2270; J2405; J2997; J3010; J7030; J7040; Q9967